=== PATIENT | female | born 1960 | race Caucasian/White ===

== ENCOUNTER 2024-01-29 10:06 | Emergency (ER) | payer MEDICARE, SELFPAY ==
[2024-01-29] VITALS (8 sets, daily range): BP systolic 133–170; BP diastolic 80–107
--- NOTE | 2024-01-29 10:37 | ED.CVA ---
History of Present Illness
<Mayito Dyson Jr., PA-C - Last Filed: 01/29/24 13:45>
General
Chief Complaint: CVA/TIA Symptoms
Source: patient
Exam Limitations: none
Time Seen by Provider: 01/29/24 10:12
Nursing documentation reviewed up to this point in time: agreed with
Onset of Stroke Symptoms
Onset of symptoms known: Yes
Date of onset of symptoms: 01/29/24
Time of onset of symptoms: 09:00
History of Present Illness
History of Present Illness:
63-year-old female without significant chronic medical conditions presenting to the emergency department today with concerns of left-sided facial droop that started roughly 1 hour prior to arrival to the ER. Denies additional symptoms. No recent
illnesses no chest pain shortness of breath nausea vomiting no numbness. Walking with steady gait. No changes in vision.
Past History
<Mayito Dyson Jr., PA-C - Last Filed: 01/29/24 13:45>
Past History
ED Past Medical History: None; Negative Asthma, HTN, Hypercholesterolemia or NIDDM
ED Past Surgical History: None
Social History
Tobacco: Non-smoker
Alcohol: Occasional
Personal:
Living: with family
Employment: Employed
Review of Systems
<Mayito Dyson Jr., PA-C - Last Filed: 01/29/24 13:45>
Review of Systems
Allergies reviewed?: Yes
All Other Systems: ROS reviewed and negative except as documented in HPI and ROS
Phy Exam
<Mayito Dyson Jr., PA-C - Last Filed: 01/29/24 13:45>
Physical Exam
Physical Exam:
GENERAL: Alert , in no apparent distress
EYE: pupils equal and reactive
NECK: Supple, no significant adenopathy.
ENT: o/p clr, mmm.
CARDIAC: Regular rate and rhythm .
LUNGS: Clear breath sounds bilaterally, no acute respiratory distress, no wheezes/rales/rhonchi
ABDOMEN: Soft, without focal tenderness, no r/g, no cvat
NEUROLOGICAL: Alert and oriented, facial droop to the left side of the face including the forehead. Otherwise no neurologic deficits. 5 out of 5 upper and lower extremity strength normal sensation when palpating bilaterally normal extraocular
movements normal finger-nose and [id number]. Walking with steady gait.
SKIN: Warm and dry, skin intact.
MUSCULOSKELETAL: No edema, well perfused.
PSYCH: Normal and appropriate interaction.
Course
<Mayito Dyson Jr., PA-C - Last Filed: 01/29/24 13:45>
Orders/Labs/Results
Orders:
Orders
01/29/24 10:39
CT Head & Neck Angio W/wo IV Urgent
Comment:
Reason For Exam: left facial palsy, recent 6th nerve isue
01/29/24 10:44
CBC/With Diff [Complete Blood Count/With Diff] Urgent
CMP [Comprehensive Metabolic Panel] Urgent
Lyme Progressive Urgent
01/29/24 11:26
Prednisone [Deltasone] 60 mg PO NOW STA
Valacyclovir HCl [Valtrex] 1,000 mg PO ONCE ONE
Abnormal Lab Results
01/29/24
10:44
MCH 32.0 H pg
(27.0-31.0)
Absolute Lymphs (auto) 0.9 L 10^3/uL
(1.2-3.4)
Lymphocytes % 18.7 L %
(20.5-51.1)
Sodium 132 L mmol/L
(135-145)
Chloride 96 L mmol/L
(98-107)
Glucose 110 H mg/dl
(70-99)
Total Bilirubin 1.7 H mg/dl
(0.2-1.3)
01/29/24 10:44
01/29/24 10:44
Vital Signs
Initial and Last Documented VS:
Initial Vital Signs
Temp Pulse Resp BP Pulse Ox
98.2 F 85 16 170/107 98
01/29/24 10:07 01/29/24 10:07 01/29/24 10:07 01/29/24 10:07 01/29/24 10:07
Last Documented Vital Signs
Temp Pulse Resp BP Pulse Ox
98.2 F 66 10 139/82 99
01/29/24 10:07 01/29/24 13:15 01/29/24 13:15 01/29/24 13:00 01/29/24 13:15
<John Hancock MD - Last Filed: 01/29/24 10:49>
Orders/Labs/Results
Orders:
Orders
01/29/24 10:39
CT Head & Neck Angio W/wo IV Urgent
Comment:
Reason For Exam: left facial palsy, recent 6th nerve isue
01/29/24 10:44
CBC/With Diff [Complete Blood Count/With Diff] Urgent
CMP [Comprehensive Metabolic Panel] Urgent
Lyme Progressive Urgent
01/29/24 11:26
Prednisone [Deltasone] 60 mg PO NOW STA
Valacyclovir HCl [Valtrex] 1,000 mg PO ONCE ONE
Abnormal Lab Results
01/29/24
10:44
MCH 32.0 H pg
(27.0-31.0)
Absolute Lymphs (auto) 0.9 L 10^3/uL
(1.2-3.4)
Lymphocytes % 18.7 L %
(20.5-51.1)
Sodium 132 L mmol/L
(135-145)
Chloride 96 L mmol/L
(98-107)
Glucose 110 H mg/dl
(70-99)
Total Bilirubin 1.7 H mg/dl
(0.2-1.3)
01/29/24 10:44
01/29/24 10:44
Vital Signs
Initial and Last Documented VS:
Initial Vital Signs
Temp Pulse Resp BP Pulse Ox
98.2 F 85 16 170/107 98
01/29/24 10:07 01/29/24 10:07 01/29/24 10:07 01/29/24 10:07 01/29/24 10:07
Last Documented Vital Signs
Temp Pulse Resp BP Pulse Ox
98.2 F 66 10 139/82 99
01/29/24 10:07 01/29/24 13:15 01/29/24 13:15 01/29/24 13:00 01/29/24 13:15
<Mayito Dyson Jr., PA-C - Last Filed: 01/29/24 13:45>
MDM/Problems Addressed
MDM/Problems Addressed:
63-year-old female presenting to the emergency department today with concerns of left-sided facial droop starting 1 hour prior to arrival. 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
Otherwise she did mention previous nerve palsy considering multiple nerve palsies in a short period of time CT angiogram was performed to ensure no underlying process. This was normal. This is very reassuring and makes central process
increasingly unlikely. Otherwise stable for discharge written for antiviral as well as steroid and also advised for eye protection. She was out of her slightly low sodium level and will follow-up for monitoring of this. Return precautions given.
<MICHELLE Almeida Jr. Last Filed: 01/29/24 13:45>
*Critical Care Note
Total Time (30-74mins, 75-104mins- exclusive of procedures): Not Applicable
ED Attending Note
<MICHELLE Almeida Jr. Last Filed: 01/29/24 13:45>
-
Portions of this chart may have been created with voice recognition software.� Occasional wrong word or��sound alike� substitutions may have occurred due to the inherent limitations of voice recognition software.
<John Hancock MD - Last Filed: 01/29/24 10:49>
ED Attending Note
Patient seen and examined by attending physician: Yes
I performed the substantive portion of visit, reviewed & personally made and approve the management plan that is documented in note by myself or HEENA.: Yes
ED Attending Note:
63-year-old female was on her computer when she noted some droopiness to the left side of her face. This started about an hour ago. No other neurologic symptoms. No numbness tingling or weakness. No visual issues. No double vision. No speech
issues. No gait issues. Interestingly she does have a history of a transient 6th nerve palsy about 6 months ago that resolved. She saw ophthalmology at that time. No recent flulike illness. No rash. No ear pain.
On exam patient is nontoxic in no distress. Slight loss of of the left nasolabial fold. Slight decreased blinking. Slight decreased creases to the left forehead upon eyebrow raising. Speech is normal. Extraocular muscles intact. Pupils are
normal. No carotid bruits. Bsomrf-ib-ltsm is normal. Faxv-sp-bwbp is normal. Strength is normal. Touch intact. Heart regular rate and rhythm no murmur. Lungs clear and equal.
Impression is very likely 1/7 left early cranial nerve palsy. Most suspicious for Valladares's palsy. Lyme titer pending. With her history of nerve palsy she will receive a vascular workup. Highly doubt central stroke. If all is stable, will be
discharged with steroids and will cover with antivirals.
Discharge Plan
Departure
Patient Disposition: Home (Routine Discharge)
Date of Disposition: 01/29/24
Time of Disposition: 13:34
Patient with high blood pressure during this ER visit?: No
Condition: Good
Covid-19: Not Applicable
Discharge Problem:
Valladares palsy, Hyponatremia
Instructions: Valladares's Palsy (DC)
Prescriptions:
New
prednisone 20 mg tablet
60 mg PO DAILY 6 Days Qty: 18 0RF
valacyclovir 1 gram tablet
1,000 mg PO TID 6 Days Qty: 18 0RF
No Action
metoclopramide HCl [Reglan] 10 mg tablet
10 mg PO Q6H PRN (Reason: nausea and vomiting) Qty: 10 0RF
Referrals:
NONE,* [Family Provider] -
Chaz Blood MD [Active] - Follow up in 10 days
Activity Restrictions/Additional Instructions:
You came to the emergency department today with concerns of left-sided facial weakness. This appears to be consistent with Valladares's palsy. You had a normal CT angiogram of the head and neck which is very reassuring. Please use the prescribed
medications and follow-up closely with your primary care doctor within 1 week for reassessment. Please protect your eye as well. Return to the emergency department any worsening, new or concerning symptoms.
Interventions
Interventions:
*Risk Screen - Suicide Last Done: 01/29/24 10:07
*General Assessment Last Done: 01/29/24 10:10
*Neglect/Abuse Screening Last Done: 01/29/24 10:07
ED- Fall Risk Assessment Last Done: 01/29/24 10:10
*ED COVID-19 Vaccine History Last Done: 01/29/24 10:10
ED- Pulmonary Assessment Last Done: 01/29/24 10:10
ED- Neurological Assessment Last Done: 01/29/24 10:10
ED- Cardiac Assessment Last Done: 01/29/24 10:10
ED Swallowing Screen Last Done: 01/29/24 10:10
Discharge Date and Time
Print Language: MONGOLIAN
[2024-01-29 11:05] LABS: % Basophils 0.4 % (0-2); % Eosinophils 0.8 % (0-6); % Immature Granulocytes 0.2 % (0-0.5); % Lymphocytes 18.7 % (20.5-51.1); % Monocytes 8.2 % (1.7-9.3); % Neutrophils 71.7 % (42.2-75.2); Absolute Lymphocytes 0.9 10^3/uL (1.2-3.4); Absolute Monocytes 0.4 10^3/uL (0.1-0.6); Absolute Neutrophils 3.4 10^3/uL (1.4-6.5); Hematocrit 39.8 % (37.0-47.0); Hemoglobin 13.9 g/dL (12.0-16.0); Mean Corp Hgb Conc. 34.9 g/dL (33.0-37.0); Mean Corpuscular Volume 91.7 fL (81.0-99.0); Mean Platelet Volume 9.3 fL (7.4-10.4); Nucleated Red Blood Cells % 0 %; Platelet Count 192 10^3/uL (130-400); Red Blood Cell Count 4.34 10^6/uL (4.20-5.40); White Blood Cell Count 4.8 10^3/uL (4.8-10.8)
[2024-01-29 11:07] LABS: ALT (SGPT) 23 U/L (0-35); AST (SGOT) 29 U/L (14-36); Albumin 4.6 g/dl (3.5-5.0); Alkaline Phosphatase 66 U/L (38-126); Blood Urea Nitrogen 17 mg/dl (7-17); Calcium 9.1 mg/dl (8.4-10.2); Carbon Dioxide 28 mmol/L (22-30); Chloride 96 mmol/L (98-107); Glucose 110 mg/dl (70-99); Sodium 132 mmol/L (135-145); Total Bilirubin 1.7 mg/dl (0.2-1.3); Total Protein 7.2 g/dl (6.3-8.2); eGFR > 60.00
[2024-01-29] MEDS: VALTREX 1000 MG PO (11:42)
[2024-01-29] MEDS: DELTASONE 60 MG PO (11:42)
[2024-01-30 10:49] LABS: Lyme Antibody Screen, EIA Negative (Negative)
== END 2024-01-29 13:55 | disposition home or self-care (01) ==
LOC: EMR 10:06
PROVIDERS: Physician Assistant; EMERGENCY PHYSICIAN Emergency Medicine
DX: G51.0 Bell's palsy (principal); E87.1 Hypo-osmolality and hyponatremia; I10 Essential (primary) hypertension
CPT/HCPCS: 99285; 70496; 70498; 80053; 85025; 86618; Q9967

== ENCOUNTER → 2024-04-09 15:24 | Outpatient (REF) | payer MEDICARE, SELFPAY | LOC: HWWDC 15:24 | PROVIDERS: ATTENDING PHYSICIAN Nurse Practitioner Family | DX: Z12.31 Encounter for screening mammogram for malignant neoplasm of breast (principal) | CPT/HCPCS: 77063; 77067 ==